=== PATIENT | male | born 1980 | race Caucasian/White ===

== ENCOUNTER 2021-03-01 03:18 | Emergency (ER) | payer SELFPAY ==
[~2021-03-01] VITALS: Ht 175.3 cm; Wt 83.9 kg
[2021-03-01] MEDS ORDERED: TYLENOL # 31 EA PO (03:41)
[2021-03-01] MEDS ORDERED: CLINDAMYCIN HC150 MG PO (03:41)
[2021-03-01] MEDS ORDERED: BACITRACIN ZINC 0.9GM TP ONE ×2 (03:45→04:00)
[2021-03-01] MEDS ORDERED: TETANUS/DIPHTHERIA TOX ADULT 0.5 ML SYR IM ONE (03:45)
[2021-03-01] MEDS ORDERED: TETANUS/DIPHTHERIA TOX ADULT 0.5 ML SYR ONE (03:53)
== END 2021-03-01 03:50 | disposition home or self-care (01) ==
LOC: ER 03:21
DX: S61.230A Puncture wound without foreign body of right index finger without damage to nail, initial encounter (principal); L08.9 Local infection of the skin and subcutaneous tissue, unspecified
CPT/HCPCS: 90714; 99282